=== PATIENT | male | born 1955 | race African-American/Black ===

== ENCOUNTER 2021-07-01 04:25 | Emergency (ER) | payer MEDICARE, MEDICAID ==
[~2021-07-01] VITALS: Ht 177.8 cm; Wt 70.0 kg
[2021-07-01 05:23] LABS: HEMATOCRIT. 41.8 % (42.0-52.0); HEMOGLOBIN. 14.3 g/dL (14.0-18.0); MEAN CORPUSCULAR HEMOGLOBIN 31.9 pg (28.0-32.0); MEAN CORPUSCULAR VOLUME 92.9 fL (80.0-94.0); MEAN PLATELET VOLUME 6.6 fl (7.4-10.4); PLATELET 217 x1000/uL (130-400); RED BLOOD CELL COUNT 4.49 mill/uL (4.7-6.1); RED CELL DISTRIBUTION WIDTH 14.3 % (11.6-14.6)
[2021-07-01 05:32] LABS: CHLORIDE 88 mEq/L (98-107)
[2021-07-01] MEDS ORDERED: POTASSIUM CHLORIDE 20MEQ TABLET SR PO ONE (06:15)
[2021-07-01] MEDS ORDERED: POTASSIUM CHLORIDE INJ 40 MEQ in DEXT 5% WATER 500 ML IV ONE (06:15)
[2021-07-01 06:39] LABS: PLATELET ESTIMATE NORMAL
[2021-07-01] MEDS ORDERED: SODIUM CHLORIDE 0.9% 1,000 ML IV ONE (09:15)
[2021-07-01 09:45] VITALS: BP 144/95
== END 2021-07-01 11:07 | disposition short-term general hospital (02) ==
LOC: ER 04:25
DX: R55 Syncope and collapse (principal); I10 Essential (primary) hypertension
CPT/HCPCS: 36415; 70450; 71045; 80053; 80320; 85025; 93005; 96365; 96375; 99291; J3480; J7030; J7060; G0480

== ENCOUNTER 2025-01-11 11:53 | Emergency (ER) | payer MEDICARE, MEDICAID ==
[~2025-01-11] VITALS: Ht 172.7 cm; Wt 59.0 kg
[2025-01-11 12:34] VITALS: O2SAT 96
[2025-01-11] MEDS ORDERED: IBUP-1455 MT (13:30)
[2025-01-11 13:39] VITALS: TEMP 36.8; O2SAT 95
[2025-01-11 13:40] VITALS: BP 142/91; PULSE 62; RESP 18
[2025-01-11] MEDS: IBUPROFEN 600MG TABLET PO ONE (13:40)
== END 2025-01-11 13:50 | disposition home or self-care (01) ==
LOC: ER 11:53
DX: S42.032A Displaced fracture of lateral end of left clavicle, initial encounter for closed fracture (principal); I10 Essential (primary) hypertension; Z79.899 Other long term (current) drug therapy; W18.39XA Other fall on same level, initial encounter; Y93.89 Activity, other specified; Y92.89 Other specified places as the place of occurrence of the external cause; Y99.8 Other external cause status
CPT/HCPCS: 73000; 99283; A4565